=== PATIENT | female | born 1965 | race Caucasian/White ===

== ENCOUNTER 2017-06-07 09:43 | Emergency (ER) | payer OTHER ==
[2017-06-07 11:07] VITALS: BP 137/87
--- NOTE | 2017-06-07 11:14 | UC ---
Throat Pain/Nasal Yevgeniy HPI - HPI Summary HPI Summary: 51 y/o female presents to the urgent care c/o sore throat, nasal congestion w/ green discharge, dry cough, body aches, WASSERMAN, chills, for the past week. Pt states her son has Hx of asthma and she wants to check for strep and flu. Her boyfriend was Dx w/ Walking pneumonia about 2 weeks ago. Pain w/ swallowing is 7 /10. She has been taking OTC meds to alleviate symptoms w/o any improvement. Pt denies fever, SOB, chest pain, abdominal pain, N/V/D. Nasal congestion and running nose has been for couples of weeks since she has a lot of mold at home. f - History of Current Complaint Chief Complaint: UCGeneralIllness Stated Complaint: ST,CONGESTION,FATIGUE Time Seen by Provider: 06/07/17 11:12 Hx Obtained From: Patient Onset/Duration: Gradual Onset, Lasting Weeks - 1 week, Still Present, Worse Since - 2 days Severity: Moderate Pain Intensity: 7 Pain Scale Used: 0-10 Numeric Cough: Nonproductive Associated Signs & Symptoms: Positive: Dysphagia, Sinus Discomfort, Nasal Discharge. Negative: Fever - Epiglottits Risk Factors Epiglottis Risk Factors: Negative - Allergies/Home Medications Allergies/Adverse Reactions: Allergies Allergy/AdvReac Type Severity Reaction Status Date / Time No Known Allergies Allergy Verified 06/07/17 11:07 Home Medications: Home Medications BuPROPion XL* [Bupropion XL*] 300 mg PO DAILY 06/07/17 [History Confirmed ] Calcium Carbonate [Calcium] 500 mg PO DAILY 06/07/17 [History Confirmed 06/07/17 ] Cholecalciferol (Vitamin D3) [Vitamin D3] 1,000 unit PO DAILY 06/07/17 [History Confirmed 06/07/17] DULoxetine DR CAP* [Cymbalta CAP*] 60 mg PO DAILY 06/07/17 [History Confirmed ] Gabapentin CAP(*) [Neurontin 300 CAP(*)] 750 mg PO BID 06/07/17 [History Confirmed 06/07/17] Meloxicam [Mobic] 15 mg PO DAILY 06/07/17 [History Confirmed 06/07/17] Methocarbamol TAB* [Robaxin 500 MG TAB*] 500 mg PO QID 06/07/17 [History Confirmed 06/07/17] Omeprazole CAP* [Prilosec CAP* 20 MG] 20 mg PO DAILY 06/07/17 [History Confirmed 06/07/17] hydrOXYzine HCL TAB* [Atarax 25 MG TAB*] 25 mg PO TID 06/07/17 [History Confirmed 06/07/17] traZODone TAB* [Desyrel TAB*] 50 mg PO BEDTIME 06/07/17 [History Confirmed 06/07] PMH/Surg Hx/FS Hx/Imm Hx Previously Healthy: Yes Other Endocrine History: Fibromyalgia, Vitamin D defficiency Other GI/ History: Hiatal hernia, Other Neurological History: Scoliosis Psychological History: Anxiety, Depression Other Psychological History: PTSD - Surgical History Surgical History: Yes Surgery Procedure, Year, and Place: Sebaceous cyst removal from sternum. Right inguinal hernia age 9. right foot cystectomy age 41 - Family History Known Family History: Positive: Cardiac Disease - Social History Occupation: Unemployed Lives: With Family Alcohol Use: None Alcohol Amount: sober for 2 months Substance Use Type: None Smoking Status (MU): Heavy Every Day Tobacco Smoker Amount Used/How Often: 10 cigs per day x 35 years Review of Systems Constitutional: Chills, Fatigue, Other - body aches Skin: Negative Eyes: Negative ENT: Sore Throat, Ear Ache - B/L ear pressure, Nasal Discharge, Sinus Congestion , Sinus Pain/Tenderness Respiratory: Cough - dry Cardiovascular: Negative Gastrointestinal: Negative Genitourinary: Negative Motor: Negative Neurovascular: Negative Musculoskeletal: Negative Neurological: Headache Psychological: Negative Is Patient Immunocompromised?: No All Other Systems Reviewed And Are Negative: Yes Physical Exam - Summary Physical Exam Summary: VITAL SIGNS: Reviewed. GENERAL: Patient is a well developed and nourished female who is sitting comfortable in the examining table. Patient is not in any acute respiratory distress. HEAD AND FACE: No signs of trauma. No ecchymosis, hematomas or skull depressions. No sinus tenderness. edematous erythematous nasal mucosa with yellowish discharge, B/Lmaxillary and frontal sinus tenderness on percussion EYES: PERRLA, EOMI x 2, No injected conjunctiva, clear watery eyes, no nystagmus. No photophobia. EARS: Hearing grossly intact. Ear canals and tympanic membranes are within normal limits. MOUTH: Positive pharynx with erythema, no exudates,no palatal petechiae. no B/L tonsillar enlargement Uvula in midline. NECK: Supple, trachea is midline, Positive anterior cervical lymphadenopathy, no JVD, no carotid bruit, no c-spine tenderness, neck with full ROM. No meningeal signs, no Kernig's or brudzinskis signs. CHEST: Symmetric, no tenderness at palpation LUNGS: Clear to auscultation bilaterally. No wheezing or crackles. CVS: Regular rate and rhythm, S1 and S2 present, no murmurs or gallops appreciated. ABDOMEN: Soft, non-tender. No signs of distention. No rebound no guarding, and no masses palpated. Bowel sounds are normal. EXTREMITIES: FROM in all major joints, no edema, no cyanosis or clubbing. NEURO: Alert and oriented x 3. No acute neurological deficits. Speech is normal and follows commands. SKIN: Dry and warm Triage Information Reviewed: Yes Vital Signs: Initial Vital Signs Temp 98.3 F 06/07/17 11:01 Pulse 85 06/07/17 11:01 Resp 14 06/07/17 11:01 BP 137/87 06/07/17 11:01 Pulse Ox 98 06/07/17 11:01 Throat Pain/Nasal Course/Dx - Course Course Of Treatment: 51 y/o female presents to the urgent care c/o sore throat, nasal congestion w/ green discharge, dry cough, body aches, [place], chills, for the past week. Pt states her son has Hx of asthma and she wants to check for strep and flu. Her boyfriend was Dx w/ Walking pneumonia about 2 weeks ago. Pain w/ swallowing is 7/10. She has been taking OTC meds to alleviate symptoms w/o any improvement. Pt denies fever, SOB, chest pain, abdominal pain, N/V/D. Nasal congestion and running nose has been for couples of weeks since she has a lot of mold at home.Hx obtained. RApid strep: negative, Influenza A&B ordered: negative. Pt with 1 week of symptoms getting worse. Pt Rx Augmentin PO and flonase nasal spray. Discharge instructions explained to Pt. Advised to Return to the clinic or PCP if symptoms do not improve.Pt understood and agreed with plan of care. - Differential Dx/Diagnosis Differential Diagnosis/HQI/PQRI: Influenza, Mononucleosis, Otitis Media, Pharyngitis, Sinusitis, Tonsillitis, URI Provider Diagnoses: 1- Acute bacterial sinusitis Discharge - Sign-Out/Discharge Documenting (check all that apply): Discharge - Discharge Plan Condition: Stable Disposition: HOME Prescriptions: Amoxicillin/Clavulanate TAB* [Augmentin TAB 875*] 875 mg PO BID #20 tab Fluticasone NASAL SPRAY 50MCG* [Flonase NASAL SPRAY 50MCG*] 2 spray BOTH NARES DAILY #1 btl Patient Education Materials: Sinusitis (ED) Referrals: Mimi Burrell [Primary Care Provider] - 1 Week Additional Instructions: 1- Please increase fluid intake and rest. take full course of antibiotic to avoid resistance 2-Use Flonase as directed to help drain fluid. Also buy saline drops to clear sinuses 3-Return to the clinic or PCP in 1 week if symptoms do not improve for further management and treatment - Billing Disposition and Condition Condition: STABLE Disposition: HOME
== END 2017-06-07 12:21 | disposition home or self-care (01) ==
LOC: UCCORT 09:43
DX: J01.90 Acute sinusitis, unspecified (principal); B96.89 Other specified bacterial agents as the cause of diseases classified elsewhere; Z82.49 Family history of ischemic heart disease and other diseases of the circulatory system; F41.8 Other specified anxiety disorders; F43.10 Post-traumatic stress disorder, unspecified; M79.7 Fibromyalgia; E55.9 Vitamin D deficiency, unspecified; M41.9 Scoliosis, unspecified; F17.210 Nicotine dependence, cigarettes, uncomplicated
CPT/HCPCS: 87502; 87651; 99212; G0463

== ENCOUNTER 2017-07-29 18:29 | Emergency (ER) | payer OTHER ==
[2017-07-29 19:36] VITALS: BP 110/71
--- NOTE | 2017-07-29 19:49 | UC ---
Hand/Wrist HPI - HPI Summary HPI Summary: C/O swelling and redness with c/o infection. - History Of Current Complaint Chief Complaint: UCUpperExtremity Stated Complaint: (R) WRIST COMPLAINT - SURGERY 07/19 Time Seen by Provider: 07/29/17 19:42 Hx Obtained From: Patient ?: No Onset/Duration: Sudden Onset - surgery 07/19, endoscopic right CTR. Severity Initially: Mild Severity Currently: Mild Pain Intensity: 4 Character Of Pain: Burning Aggravating Factor(s): Movement Alleviating Factor(s): Nothing Related History: Dominant Hand Right - Allergies/Home Medications Allergies/Adverse Reactions: Allergies Allergy/AdvReac Type Severity Reaction Status Date / Time No Known Allergies Allergy Verified 07/29/17 19:37 PMH/Surg Hx/FS Hx/Imm Hx Psychological History: Post Traumatic Stress Disorder - Surgical History Surgical History: Yes Surgery Procedure, Year, and Place: Sebaceous cyst removal from sternum. Right inguinal hernia age 9. right foot cystectomy age 41. carpal tunnel release 2017 - Family History Known Family History: Positive: Cardiac Disease - Social History Occupation: Disabled Lives: With Family Alcohol Use: None Alcohol Amount: sober for 2 months Substance Use Type: Marijuana Substance Use Comment - Amount & Last Used: occasionally Smoking Status (MU): Heavy Every Day Tobacco Smoker Amount Used/How Often: 10 cigs per day x 35 years Have You Smoked in the Last Year: No Cessation Counseling: Patient Advised to Stop Review of Systems Is Patient Immunocompromised?: No All Other Systems Reviewed And Are Negative: Yes Physical Exam Triage Information Reviewed: Yes Appearance: Well-Appearing, No Pain Distress, Well-Nourished Vital Signs: Initial Vital Signs Temp 97.8 F 07/29/17 19:28 Pulse 59 07/29/17 19:28 Resp 16 07/29/17 19:28 BP 110/71 07/29/17 19:28 Pulse Ox 100 07/29/17 19:28 Vital Signs Reviewed: Yes Neck exam: Normal Respiratory Exam: Normal Cardiovascular Exam: Normal Musculoskeletal Exam: Normal Neurological Exam: Normal Psychological Exam: Normal Skin Exam: Normal Hand/Wrist Course/Dx - Differential Dx/Diagnosis Differential Diagnosis/HQI/PQRI: Carpal Tunnel Syndrome, Cellulitis, Sprain, Strain Provider Diagnoses: Carpal Tunnel syndrome. Wound check Discharge - Sign-Out/Discharge Documenting (check all that apply): Discharge/Admit/Transfer - Discharge Plan Condition: Stable Disposition: HOME Patient Education Materials: Carpal Tunnel Surgery (DC), Paresthesia (ED) Referrals: Mimi Burerll [Primary Care Provider] - Additional Instructions: Smoking Cessation Tricks. 1. Cut down by 1 cigarette per day every 2-3 days. Write the number of smokes for that day on the calendar. 2. Identify triggers to smoking: after meals, on the phone, in the car, with coffee, on breaks at work, etc. 3. Formulate a plan with a behavior to replace the smoking. Fireballs in the car , doodle pad on the phone, flavored creamer for the coffee, go for a walk after a meal or on break at work. 4. For stress smokes do deep breathing relaxation. Breath deep in through the nose hold the breath in for a few seconds then breath out slowly through the mouth. The burning pain, I believe, is the nerve waking up. The wound is healing normally. - Billing Disposition and Condition Condition: STABLE Disposition: HOME
== END 2017-07-29 20:08 | disposition home or self-care (01) ==
LOC: UCCORT 18:29
DX: G56.00 Carpal tunnel syndrome, unspecified upper limb (principal); F17.210 Nicotine dependence, cigarettes, uncomplicated; Z98.890 Other specified postprocedural states
CPT/HCPCS: 99212; G0463